=== PATIENT | female | born 1995 | race Caucasian/White ===

== ENCOUNTER 2021-10-27 06:00 | Inpatient (IN) | payer BC ==
[2021-10-27 06:34] LABS: Glucose,Whole Blood 87 mg/dL (70-110)
[2021-10-27] MEDS ORDERED: CARBOPROST TROMETHAMINE 250 MCG/ML 1 ML AMP IM PRN (06:34)
[2021-10-27] MEDS ORDERED: TERBUTALINE 1 MG/ML VIAL SQ PRN (06:34)
[2021-10-27] MEDS ORDERED: LIDOCAINE 0.5% (PF) 5 MG/ML (50 ML SDV) SQ PRN (06:34)
[2021-10-27] MEDS ORDERED: OXYTOCIN 10 UNIT/ML 1 ML VIAL IM PRN (06:34)
[2021-10-27] MEDS ORDERED: METHYLERGONOVINE 0.2 MG/ML 1 ML AMP IM PRN (06:34)
[2021-10-27] MEDS ORDERED: OXYTOCIN 30 UNITS/500 ML NS 30 UNIT in SALINE 1 500ML.BAG IV SCH ×2 (06:45→21:30)
[2021-10-27 06:48] LABS: Basophils # (A) 0.1 k/uL (0-0.2); Basophils % (A) 1 %; Eosinophils # (A) 0.2 k/uL (0-0.7); Eosinophils % (A) 2 %; HCT 39.3 % (34.0-46.0); HGB 13.2 gm/dL (11.4-16.0); Lymphocytes # (A) 2.6 k/uL (1.0-4.8); Lymphocytes % (A) 26 %; MCHC 33.5 g/dL (31.0-37.0); MCV 92.6 fL (80.0-100.0); Mean Platelet Volume 7.5; Monocytes # (A) 0.6 k/uL (0-1.0); Monocytes % (A) 6 %; Neutrophils # (A) 6.5 k/uL (1.3-7.7); Neutrophils % (A) 65 %; Platelet Count 218 k/uL (150-450); RBC 4.25 m/uL (3.80-5.40); RDW 13.6 % (11.5-15.5); WBC 10.1 k/uL (3.8-10.6)
[2021-10-27] MEDS: LACTATED RINGERS 1,000 ML IV SCH ×2 (07:02→12:52)
--- NOTE | 2021-10-27 08:23 | P.HPOB ---
History of Present Illness H&P Date: 10/27/21 Chief Complaint: induction of labor 26 year old presents at 39 weeks for induction of labor. She has diet controlled GDM and sugar today is 87. Her cervix is 2-3 cm dilated, 80% effaced, and -2 station. She is clara irregularly. heart tones are 135 with moderate variability and reactive. Review of Systems All systems: negative Constitutional: Denies chills, Denies fever Eyes: denies blurred vision, denies pain Ears, nose, mouth and throat: Denies headache, Denies sore throat Cardiovascular: Denies chest pain, Denies shortness of breath Respiratory: Denies cough Gastrointestinal: Denies abdominal pain, Denies diarrhea, Denies nausea, Denies vomiting Genitourinary: Denies dysuria, Denies hematuria Musculoskeletal: Denies myalgias Integumentary: Denies pruritus, Denies rash Neurological: Denies numbness, Denies weakness Psychiatric: Denies anxiety, Denies depression Endocrine: Denies fatigue, Denies weight change Past Medical History Past Medical History: No Reported History Additional Past Medical History / Comment(s): ovarian cysts History of Any Multi-Drug Resistant Organisms: None Reported Past Surgical History: No Surgical Hx Reported Past Anesthesia/Blood Transfusion Reactions: No Reported Reaction Past Psychological History: No Psychological Hx Reported Smoking Status: Never smoker Past Alcohol Use History: None Reported Past Drug Use History: None Reported - Past Family History Brother(s) Family Medical History: No Reported History Medications and Allergies Home Medications Medication Instructions Recorded Confirmed Type Vit No.179/Iron/Folic 1 tab PO DAILY 10/27/21 10/27/21 History [ Tablet] Allergies Allergy/AdvReac Type Severity Reaction Status Date / Time codeine AdvReac Unknown Verified 10/26/21 15:18 Sulfa (Sulfonamide AdvReac Unknown Verified 10/26/21 15:18 Antibiotics) Exam Osteopathic Statement: *. No significant issues noted on an osteopathic structural exam other than those noted in the History and Physical/Consult. Vital Signs Temp Pulse Resp BP Pulse Ox 10/27/21 06:29 99.1 F 100 16 139/92 97 Intake and Output 10/26/21 10/27/21 10/27/21 22:59 06:59 14:59 Other: Weight 127.006 kg Heart: Regular rate and rhythm Lungs: Clear to auscultation bilaterally Abdomen: Soft, nontender Extremities: Negative Homans sign Results Result Diagrams: 10/27/21 06:35 Assessment and Plan (1) Gestational diabetes mellitus, class A1 Current Visit: Yes Status: Acute Code(s): O24.410 - GESTATIONAL DIABETES MELLITUS IN , DIET CONTROLLED SNOMED Code(s): 88443320 (2) 39 weeks gestation of Current Visit: Yes Status: Acute Code(s): Z3A.39 - 39 WEEKS GESTATION OF SNOMED Code(s): 23445395 (3) Encounter for induction of labor Current Visit: Yes Status: Acute Code(s): Z34.90 - ENCNTR FOR SUPRVSN OF NORMAL , UNSP, UNSP TRIMESTER SNOMED Code(s): 237815891 Plan: 1. Induction of labor with amniotomy and Pitocin 2. Anticipate normal vaginal delivery
[2021-10-27] MEDS: BUTORPHANOL 1 MG/ML 1 ML VIAL IV PRN ×4 (12:44→17:53)
[2021-10-27] MEDS ORDERED: diphenhydrAMINE 50 MG/ML 1 ML VIAL IVP PRN ×2 (21:25)
[2021-10-27] MEDS ORDERED: HYDROCORTISONE 2.5% RECTAL CREAM 30 GM TUBE RECTAL PRN (21:25)
[2021-10-27] MEDS ORDERED: LANOLIN CREAM 5 GM TUBE TOPICAL PRN (21:25)
[2021-10-27] MEDS ORDERED: SIMETHICONE 80 MG CHEWABLE PO PRN (21:25)
[2021-10-27] MEDS ORDERED: ACETAMINOPHEN TAB 325 MG TAB PO PRN (21:25)
[2021-10-27] MEDS ORDERED: diphenhydrAMINE 25 MG CAP PO PRN (21:25)
[2021-10-27] MEDS ORDERED: ZOLPIDEM 5 MG TAB PO PRN (21:25)
[2021-10-27] MEDS ORDERED: BENZOCAINE/MENTHOL SPRAY 1 GM/SPRAY AEROSOL TOPICAL PRN (21:25)
[2021-10-27] MEDS ORDERED: diphenhydrAMINE 50 MG CAP PO PRN (21:25)
--- NOTE | 2021-10-27 21:28 | P.PROBDLV ---
Vaginal Delivery Note - . Vaginal Delivery Note: 26 year old presents at 39 weeks for induction of labor. She has diet controlled GDM and sugar today is 87. Her cervix is 2-3 cm dilated, 80% effaced, and -2 station. She is clara irregularly. heart tones are 135 with moderate variability and reactive. Pitocin was started and amniotomy performed at 7:47 AM clear fluid noted. She progressed slowly throughout the day. She is nitrous and then Stadol for pain management. Her cervix was a rim dilated and had her start pushing at 2029. Her cervix was completely dilated at 2039. She pushed and delivered a viable female over intact perineum at 2102. Head delivered OA, anterior shoulder delivered gentle downward guidance followed by posterior shoulder and rest of body. Nose and mouth bulb suctioned, cord clamped and cut, placed mother's abdomen. Apgars 9, 9, weight 7 lbs. 9 oz. Placenta delivered spontaneously, intact with three-vessel cord at 2105. Vagina, cervix, and perineum were inspected. Right labial laceration was repaired with 3-0 Vicryl. Estimated blood loss 300 mL. Mother and baby in stable condition.
[2021-10-27] MEDS: IBUPROFEN 600 MG TAB PO PRN (22:56)
[2021-10-28 06:35] LABS: Basophils % (A) 0 %; Eosinophils % (A) 0 %; HGB 11.5 gm/dL (11.4-16.0); Lymphocytes # (A) 2.1 k/uL (1.0-4.8); Lymphocytes % (A) 11 %; MCH 31.2 pg (25.0-35.0); MCHC 33.7 g/dL (31.0-37.0); MCV 92.4 fL (80.0-100.0); Mean Platelet Volume 8.2; Monocytes # (A) 1.4 k/uL (0-1.0); Monocytes % (A) 7 %; Neutrophils # (A) 15.1 k/uL (1.3-7.7); Neutrophils % (A) 80 %; Platelet Count 217 k/uL (150-450); RBC 3.68 m/uL (3.80-5.40); RDW 13.5 % (11.5-15.5); WBC 18.9 k/uL (3.8-10.6)
--- NOTE | 2021-10-28 08:20 | P.DS ---
Providers Date of admission: 10/27/21 06:20 Expected date of discharge: 10/28/21 Attending physician: Norma Mcdaniel Primary care physician: Stated None - Discharge Diagnosis(es) (1) Gestational diabetes mellitus, class A1 Current Visit: Yes Status: Resolved (2) 39 weeks gestation of Current Visit: Yes Status: Resolved (3) Encounter for induction of labor Current Visit: Yes Status: Resolved (4) Normal vaginal delivery Current Visit: Yes Status: Acute Hospital Course: Patient presented for induction of labor. She underwent a normal vaginal delivery. Postterm course was uncomplicated. She denies nausea, vomiting, chest pain, shortness of breath or any calf pain. Patient will be discharged home day #1 in stable condition to follow-up with me in 6 weeks. Plan - Discharge Summary New Discharge Prescriptions: New Ibuprofen [Motrin] 600 mg PO Q6HR PRN #40 tab PRN Reason: Mild Pain (Scale 1 To 3) No Action Vit No.179/Iron/Folic [ Tablet] 1 tab PO DAILY Discharge Medication List Vit No.179/Iron/Folic [ Tablet] 1 tab PO DAILY 10/27/21 [History] Ibuprofen [Motrin] 600 mg PO Q6HR PRN #40 tab 10/28/21 [Rx] Follow up Appointment(s)/Referral(s): Norma Mcdaniel DO [Doctor of Osteopathic Medicine] - 12/06/21 3:45 pm Discharge Disposition: HOME SELF-CARE
[2021-10-28] MEDS: IBUPROFEN 600 MG TAB PO PRN ×2 (08:22→18:39)
[2021-10-28 08:26] VITALS: RESP 16
[2021-10-28] MEDS: SENNOSIDES-DOCUSATE SODIUM 1 EACH TAB PO SCH ×2 (13:02→19:52)
[2021-10-29] MEDS: IBUPROFEN 600 MG TAB PO PRN ×3 (01:41→14:11)
[2021-10-29] MEDS: SENNOSIDES-DOCUSATE SODIUM 1 EACH TAB PO SCH (08:02)
[2021-10-29 08:15] VITALS: BP 112/77; PULSE 99; TEMP 98.4
== END 2021-10-29 16:02 | disposition home or self-care (01) | DRG 807 ==
LOC: MERGE 06:00 → 4FBP 06:20
PROVIDERS: ADMIT Obstetrics & Gynecology; ATTEND Obstetrics & Gynecology
PROC: 10E0XZZ Delivery of Products of Conception, External Approach (ICD-10-PCS; principal; 2021-10-27)
PROC: 10907ZC Drainage of Amniotic Fluid, Therapeutic from Products of Conception, Via Natural or Artificial Opening (ICD-10-PCS; 2021-10-27)
PROC: 3E033VJ Introduction of Other Hormone into Peripheral Vein, Percutaneous Approach (ICD-10-PCS; 2021-10-27)
PROC: 0HQ9XZZ Repair Perineum Skin, External Approach (ICD-10-PCS; 2021-10-27)
DX: O24.420 Gestational diabetes mellitus in childbirth, diet controlled (principal); Z37.0 Single live birth; O70.0 First degree perineal laceration during delivery; Z3A.39 39 weeks gestation of pregnancy; N83.209 Unspecified ovarian cyst, unspecified side; Z88.5 Allergy status to narcotic agent; Z88.2 Allergy status to sulfonamides
CPT/HCPCS: 83036; 85025; 86850; 86900; 86901

== ENCOUNTER → 2023-05-31 | Outpatient (CLI) | payer BC ==
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
== END | disposition home or self-care (01) ==
LOC: RADUSWWP 15:29
PROVIDERS: ATTEND Obstetrics & Gynecology
DX: Z36.89 Encounter for other specified antenatal screening (principal)
CPT/HCPCS: 76801; 76813

== ENCOUNTER 2023-08-25 15:44 | Outpatient (CLI) | payer BC ==
[2023-08-25 17:31] VITALS: BP 127/85; PULSE 100; RESP 18; TEMP 98.8
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
== END 2023-08-25 16:43 | disposition home or self-care (01) ==
LOC: FBPOP 15:44
PROVIDERS: ATTEND Obstetrics & Gynecology
DX: O9A.212 Injury, poisoning and certain other consequences of external causes complicating pregnancy, second trimester (principal); S30.814A Abrasion of vagina and vulva, initial encounter; Z3A.24 24 weeks gestation of pregnancy; Z88.5 Allergy status to narcotic agent; Z88.2 Allergy status to sulfonamides; W01.198A Fall on same level from slipping, tripping and stumbling with subsequent striking against other object, initial encounter; Y92.015 Private garage of single-family (private) house as the place of occurrence of the external cause
CPT/HCPCS: 99213

== ENCOUNTER 2023-12-13 05:50 | Inpatient (IN) | payer BC ==
[2023-12-13] MEDS ORDERED: miSOPROStoL 200 MCG TAB RECTAL PRN (05:56)
[2023-12-13] MEDS ORDERED: METHYLERGONOVINE 0.2 MG/ML 1 ML AMP IM PRN (05:56)
[2023-12-13] MEDS ORDERED: TRANEXAMIC 1,000 MG/100ML-NACL 1,000 MG in EMPTY BAG 1 BAG IV PRN (05:56)
[2023-12-13] MEDS ORDERED: CARBOPROST TROMETHAMINE 250 MCG/ML 1 ML AMP IM PRN (05:56)
[2023-12-13] MEDS ORDERED: OXYTOCIN 10 UNIT/ML 1 ML VIAL IM PRN (05:56)
[2023-12-13] MEDS ORDERED: miSOPROStoL 200 MCG TAB PO PRN (05:56)
[2023-12-13] MEDS ORDERED: TERBUTALINE 1 MG/ML VIAL SQ PRN (05:56)
[2023-12-13] MEDS: LACTATED RINGERS 1,000 ML IV SCH (06:10)
[2023-12-13] MEDS: OXYTOCIN 30 UNITS/500 ML NS 30 UNIT in SALINE 1 500ML.BAG IV SCH ×2 (06:30→19:04)
[2023-12-13 06:31] LABS: Basophils # (A) 0.1 k/uL (0-0.2); Basophils % (A) 1 %; Eosinophils # (A) 0.1 k/uL (0-0.7); Eosinophils % (A) 1 %; HCT 35.3 % (34.0-46.0); HGB 11.8 gm/dL (11.4-16.0); Lymphocytes # (A) 2.5 k/uL (1.0-4.8); Lymphocytes % (A) 24 %; MCH 30.1 pg (25.0-35.0); MCHC 33.4 g/dL (31.0-37.0); MCV 90.1 fL (80.0-100.0); Mean Platelet Volume 7.5; Monocytes # (A) 0.6 k/uL (0-1.0); Monocytes % (A) 5 %; Neutrophils # (A) 6.9 k/uL (1.3-7.7); Neutrophils % (A) 66 %; Platelet Count 253 k/uL (150-450); RBC 3.92 m/uL (3.80-5.40); RDW 14.2 % (11.5-15.5); WBC 10.3 k/uL (3.8-10.6)
--- NOTE | 2023-12-13 07:52 | P.HPOB ---
History of Present Illness H&P Date: 12/13/23 Chief Complaint: induction of labor 28 year old presents at 40 weeks 2 days for induction of labor. Her cervix is 4/80/-3. She is clara every few minutes but not feeling them. heart tones 135 with moderate variability and reactive. Review of Systems All systems: negative Constitutional: Denies chills, Denies fever Eyes: denies blurred vision, denies pain Ears, nose, mouth and throat: Denies headache, Denies sore throat Cardiovascular: Denies chest pain, Denies shortness of breath Respiratory: Denies cough Gastrointestinal: Denies abdominal pain, Denies diarrhea, Denies nausea, Denies vomiting Genitourinary: Denies dysuria, Denies hematuria Musculoskeletal: Denies myalgias Integumentary: Denies pruritus, Denies rash Neurological: Denies numbness, Denies weakness Psychiatric: Denies anxiety, Denies depression Endocrine: Denies fatigue, Denies weight change Past Medical History Past Medical History: No Reported History Additional Past Medical History / Comment(s): ovarian cysts History of Any Multi-Drug Resistant Organisms: None Reported Past Surgical History: No Surgical Hx Reported Past Anesthesia/Blood Transfusion Reactions: No Reported Reaction Past Psychological History: No Psychological Hx Reported Smoking Status: Never smoker Past Alcohol Use History: None Reported Past Drug Use History: None Reported - Past Family History Brother(s) Family Medical History: No Reported History Medications and Allergies Home Medications Medication Instructions Recorded Confirmed Type Vit No.179/Iron/Folic 1 tab PO DAILY 10/27/21 12/13/23 History [ Tablet] Allergies Allergy/AdvReac Type Severity Reaction Status Date / Time codeine AdvReac Unknown Verified 12/13/23 05:56 Sulfa (Sulfonamide AdvReac Unknown Verified 12/13/23 05:56 Antibiotics) Exam Osteopathic Statement: *. No significant issues noted on an osteopathic structural exam other than those noted in the History and Physical/Consult. Vital Signs Temp Pulse Resp BP Pulse Ox 12/13/23 05:56 97.4 F L 96 17 147/89 97 Intake and Output 12/12/23 12/13/23 12/13/23 22:59 06:59 14:59 Other: # Voids 1 Weight 120.202 kg Heart: Regular rate and rhythm Lungs: Clear to auscultation bilaterally Abdomen: Soft, nontender Extremities: Negative Homans sign Results Result Diagrams: 12/13/23 06:10 Assessment and Plan (1) 40 weeks gestation of Current Visit: Yes Status: Acute Code(s): Z3A.40 - 40 WEEKS GESTATION OF SNOMED Code(s): 44519534 (2) Encounter for induction of labor Current Visit: No Status: Resolved Code(s): Z34.90 - ENCNTR FOR SUPRVSN OF NORMAL , UNSP, UNSP TRIMESTER SNOMED Code(s): 487593230 Plan: 1. induction of labor with amniotomy and pitocin. 2. anticipate normal vaginal delivery
[2023-12-13] MEDS: NALBUPHINE 10 MG/ML (10 ML MDV) IV PRN (09:18)
[2023-12-13] MEDS ORDERED: HYDROCORTISONE 2.5% RECTAL CREAM 30 GM TUBE RECTAL PRN (13:26)
[2023-12-13] MEDS ORDERED: ZOLPIDEM 5 MG TAB PO PRN (13:26)
[2023-12-13] MEDS ORDERED: diphenhydrAMINE 25 MG CAP PO PRN (13:26)
[2023-12-13] MEDS ORDERED: diphenhydrAMINE 50 MG CAP PO PRN (13:26)
[2023-12-13] MEDS ORDERED: diphenhydrAMINE 50 MG/ML 1 ML VIAL IVP PRN ×2 (13:26)
[2023-12-13] MEDS ORDERED: LANOLIN CREAM 1 GM TUBE TOPICAL PRN (13:26)
[2023-12-13] MEDS ORDERED: SIMETHICONE 80 MG CHEWABLE PO PRN (13:26)
[2023-12-13] MEDS: IBUPROFEN 600 MG TAB PO PRN (13:40)
[2023-12-13] MEDS: LIDOCAINE 0.5% (PF) 5 MG/ML (50 ML SDV) SQ PRN (13:45)
[2023-12-13] MEDS: BENZOCAINE/MENTHOL SPRAY 1 GM/SPRAY AEROSOL TOPICAL PRN (13:46)
[2023-12-13] MEDS: ACETAMINOPHEN TAB 325 MG TAB PO PRN (15:31)
[2023-12-13 19:48] LABS: Basophils % (A) 0 %; Eosinophils % (A) 0 %; HCT 31.1 % (34.0-46.0); HGB 10.3 gm/dL (11.4-16.0); Hypochromasia Slight; Lymphocytes # (A) 1.1 k/uL (1.0-4.8); Lymphocytes % (A) 6 %; MCH 30.2 pg (25.0-35.0); MCV 91.6 fL (80.0-100.0); Mean Platelet Volume 7.7; Monocytes # (A) 0.7 k/uL (0-1.0); Monocytes % (A) 4 %; Neutrophils % (A) 90 %; Platelet Count 279 k/uL (150-450); RDW 14.3 % (11.5-15.5); WBC 19.9 k/uL (3.8-10.6)
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
[2023-12-13] MEDS: SENNOSIDES-DOCUSATE SODIUM 1 EACH TAB PO SCH (21:25)
[2023-12-14 00:46] LABS: HCT 26.3 % (34.0-46.0); HGB 9.2 gm/dL (11.4-16.0); MCH 31.2 pg (25.0-35.0); MCHC 35.1 g/dL (31.0-37.0); Mean Platelet Volume 7.9; Platelet Count 255 k/uL (150-450); RBC 2.95 m/uL (3.80-5.40); RDW 14.7 % (11.5-15.5); WBC 19.1 k/uL (3.8-10.6)
[2023-12-14 07:13] LABS: Basophils % (A) 0 %; Eosinophils # (A) 0.1 k/uL (0-0.7); Eosinophils % (A) 1 %; HCT 24.4 % (34.0-46.0); HGB 7.9 gm/dL (11.4-16.0); Lymphocytes # (A) 2.4 k/uL (1.0-4.8); Lymphocytes % (A) 16 %; MCH 29.5 pg (25.0-35.0); MCHC 32.3 g/dL (31.0-37.0); MCV 91.3 fL (80.0-100.0); Mean Platelet Volume 8.1; Monocytes % (A) 6 %; Neutrophils # (A) 11.4 k/uL (1.3-7.7); Neutrophils % (A) 75 %; Platelet Count 235 k/uL (150-450); RBC 2.67 m/uL (3.80-5.40); RDW 14.6 % (11.5-15.5); WBC 15.2 k/uL (3.8-10.6)
--- NOTE | 2023-12-14 08:22 | P.PROBDLV ---
Vaginal Delivery Note - . Vaginal Delivery Note: 28 year old presents at 40 weeks 2 days for induction of labor. Her cervix is 4/80/-3. She is clara every few minutes but not feeling them. heart tones 135 with moderate variability and reactive. Pitocin was started and amniotomy performed at 7:30 AM clear fluid noted. Patient quickly progressed to give 1 dose of Nubain when she was 8 cm. Her cervix was completely dilated at 1238. She labored down and then pushed one time and delivered a viable male over intact perineum at 1256. Head delivered OA, anterior shoulder delivered gentle downward guidance for by posterior shoulder and rest of body. Nose and mouth bulb suctioned, cord clamped and cut, placed mother's abdomen. Apgars 9, 9, weight 9 pounds 0.6 ounces. Placenta delivered spontaneously, intact with three-vessel cord at 1304. Vagina, cervix, and perineum were inspected. First-degree midline laceration was repaired with 3-0 Vicryl. Estimated blood loss 150 mL. Mother and baby in stable condition.
--- NOTE | 2023-12-14 08:26 | P.PNOBGVD ---
Subjective - Subjective Principal diagnosis: Status post normal vaginal delivery day #1 Interval history: patient seen and examined. Last night she had a drop in her hemoglobin and pain. After she passed a blood clot her pain resolved but she does have a hematoma on the left side from the abdomen down to the left perivaginal area. When I examined her this morning and felt like a golf ball size very close to the cervix on the left side. she has a catheter in place which will be removed. The patient feels very well is not dizzy or lightheaded, no headache. Vitals are stable. Hemoglobin this morning is 7.9 that to drop down from 11.3 on admission. I'll get another hemoglobin at noon and if this continues to trend down may get a CTA as advised by radiology. : doing well Objective - Latest Vital Signs Latest vital signs: Vital Signs Temp Pulse Resp BP Pulse Ox 12/14/23 04:00 98.2 F 83 16 114/77 97 12/14/23 00:00 98.1 F 89 16 109/73 97 12/13/23 21:00 98.7 F 112 H 17 107/70 97 12/13/23 20:15 107 H 20 105/71 98 12/13/23 19:38 104 H 20 111/77 100 12/13/23 19:22 111 H 20 62/45 97 12/13/23 19:18 112 H 20 67/47 96 12/13/23 18:55 118 H 20 103/68 99 12/13/23 15:15 98 16 143/60 12/13/23 15:00 92 16 137/69 12/13/23 14:45 99 16 132/80 12/13/23 14:30 98.2 F 100 16 129/73 97 12/13/23 14:15 96 16 125/63 12/13/23 14:00 99 16 143/79 12/13/23 13:45 95 16 139/78 12/13/23 13:30 100 16 133/69 12/13/23 13:15 109 H 16 130/74 97 Intake and Output 12/13/23 12/14/23 12/14/23 22:59 06:59 14:59 Intake Total 990.833 Output Total 984 760 Balance -984 230.833 Intake: Intake, IV Titration 990.833 Amount Oxytocin 30 Units/500 ml 990.833 Ns 30 unit In Saline 1 500ml.bag @ Per Protocol IV .Q0M [facility] Rx#:[id number] Output: Urine 200 400 Output, Quantitative 784 360 Blood Loss Other: Voiding Method Indwelling Catheter # Voids 1 - Exam Lungs: bilateral: normal Chest: Normal S1, Normal S2 Extremities: Present: normal Abdomen: Present: normal appearance, soft Uterus: Present: normal, firm - Labs Labs: Abnormal Lab Results - Last 24 Hours (Table) 12/13/23 12/14/23 12/14/23 Range/Units 19:29 00:28 07:04 WBC 19.9 H 19.1 H 15.2 H (3.8-10.6) k/uL RBC 3.40 L 2.95 L 2.67 L (3.80-5.40) m/uL Hgb 10.3 L 9.2 L 7.9 L (11.4-16.0) gm/dL Hct 31.1 L 26.3 L 24.4 L (34.0-46.0) % Neutrophils # 18.0 H 11.4 H (1.3-7.7) k/uL Assessment and Plan (1) 40 weeks gestation of Current Visit: Yes Status: Resolved Code(s): Z3A.40 - 40 WEEKS GESTATION OF SNOMED Code(s): 58210755 (2) Encounter for induction of labor Current Visit: No Status: Resolved Code(s): Z34.90 - ENCNTR FOR SUPRVSN OF NORMAL , UNSP, UNSP TRIMESTER SNOMED Code(s): 864987579 Plan: 1. cont pp care 2. cbc at noon 3. d/c catheter
[2023-12-14 12:23] LABS: HCT 25.2 % (34.0-46.0); HGB 8.5 gm/dL (11.4-16.0); MCH 30.5 pg (25.0-35.0); MCHC 33.6 g/dL (31.0-37.0); MCV 90.8 fL (80.0-100.0); Mean Platelet Volume 7.8; Platelet Count 258 k/uL (150-450); RBC 2.78 m/uL (3.80-5.40); RDW 14.4 % (11.5-15.5); WBC 14.6 k/uL (3.8-10.6)
[2023-12-14 23:45] VITALS: RESP 16
--- NOTE | 2023-12-15 08:02 | P.DS ---
Providers Date of admission: 12/13/23 05:50 Expected date of discharge: 12/15/23 Attending physician: Norma Mcdaniel Primary care physician: Stated None - Discharge Diagnosis(es) (1) 40 weeks gestation of Current Visit: Yes Status: Resolved (2) Encounter for induction of labor Current Visit: No Status: Resolved (3) Vaginal hematoma Current Visit: Yes Status: Acute (4) Normal vaginal delivery Current Visit: No Status: Acute (5) Acute blood loss anemia Current Visit: Yes Status: Acute Hospital Course: Patient presented for induction of labor. She underwent a normal vaginal delivery. course was complicated by a drop in hemoglobin and a vaginal hematoma that extends up into the abdomen near the umbilicus. She did have a CAT scan and serial hemoglobins. The bleeding did stop on its own. Patient denies nausea, vomiting, chest pain, shortness of breath or calf pain. She will be discharged home day #2 in stable condition to follow-up with me in 6 weeks. Plan - Discharge Summary New Discharge Prescriptions: New Ibuprofen [Motrin] 600 mg PO Q6HR PRN #30 tab PRN Reason: Mild Pain (Scale 1 To 3) No Action Vit No.179/Iron/Folic [ Tablet] 1 tab PO DAILY Discharge Medication List Vit No.179/Iron/Folic [ Tablet] 1 tab PO DAILY 10/27/21 [History] Ibuprofen [Motrin] 600 mg PO Q6HR PRN #30 tab 12/15/23 [Rx] Follow up Appointment(s)/Referral(s): Norma Mcdaniel DO [Doctor of Osteopathic Medicine] - 6 Weeks Discharge Disposition: HOME SELF-CARE
[2023-12-15 09:12] VITALS: BP 112/70; PULSE 104; TEMP 98
== END 2023-12-15 13:15 | disposition home or self-care (01) | DRG 806 ==
LOC: 4FBP 05:50
PROVIDERS: ADMIT Obstetrics & Gynecology; ATTEND Obstetrics & Gynecology
PROC: 10E0XZZ Delivery of Products of Conception, External Approach (ICD-10-PCS; principal; 2023-12-14)
PROC: 0HQ9XZZ Repair Perineum Skin, External Approach (ICD-10-PCS; 2023-12-14)
PROC: 10907ZC Drainage of Amniotic Fluid, Therapeutic from Products of Conception, Via Natural or Artificial Opening (ICD-10-PCS; 2023-12-14)
DX: O70.0 First degree perineal laceration during delivery (principal); D62 Acute posthemorrhagic anemia; Z37.0 Single live birth; O99.02 Anemia complicating childbirth; Z3A.40 40 weeks gestation of pregnancy
CPT/HCPCS: 74176; 85025; 85027; 86850; 86900; 86901

== ENCOUNTER → 2024-01-11 | Outpatient (CLI) | payer BC ==
--- NOTE | 2024-01-11 11:23 | US ---
EXAMINATION TYPE: US abdomen complete DATE OF EXAM: 01/11/2024 COMPARISON: NONE CLINICAL INDICATION: Female, 28 years old with history of R93.5 ABN FINDINGS ON DX IMAGING OF ABD REG IONS, I; Follow up to CT scan. TECHNIQUE: Grayscale and color Doppler imaging of the abdomen was performed. 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 Evidence for sonographic Apple's sign: no CBD: wnl Spleen: wnl Right Kidney: No hydronephrosis or masses seen Left Kidney: No hydronephrosis or masses seen Upper IVC: wnl Abd Aorta: wnl IMPRESSION: Mild hepatomegaly. Correlate for underlying hepatocellular disease. [facility], , 01/11/2024 11:21 AM
--- NOTE | 2024-01-11 11:51 | US ---
EXAMINATION TYPE: US pelvic complete DATE OF EXAM: 01/11/2024 COMPARISON: NONE CLINICAL INDICATION: Female, 28 years old with history of R93.5 ABN FINDINGS ON DX IMAGING OF ABD REG IONS, I; Follow up to ct scan large hematoma seen TECHNIQUE: Transabdominal (TA FINDINGS: EXAM MEASUREMENTS: Uterus: 12.3 x 5.0 x 5.9 cm Endometrial Stripe: .4 cm Right Ovary: 2.7 x 1.7 x 2.0 cm Complex area seen left adnexa measuring 13.6 x 7.9 x 7.4 cm 1. Uterus: Anteverted wnl 2. Endometrium: wnl 3. Right Ovary: wnl 4. Left Ovary: Obscured by complex area in left adnexa. 5. Bilateral Adnexa: Complex mass seen 6. Posterior cul-de-sac: wnl Report called to the referring clinician Dr. Beyer 11:38 AM 01/11/2024. IMPRESSION: Large complex area in the left adnexa measuring 13.6 x 7.9 cm. Most likely is related to a large hematoma previously described by CT scan. Other etiologies including neoplasm and infection n ot excluded. Recommend follow-up to resolution. CT scan of the abdomen and pelvis could be obtained f or further evaluation. [facility], , 01/11/2024 11:49 AM
== END | disposition home or self-care (01) ==
LOC: RADUSWWP 09:03
PROVIDERS: ATTEND Pediatrics
DX: R93.5 Abnormal findings on diagnostic imaging of other abdominal regions, including retroperitoneum (principal)
CPT/HCPCS: 76700; 76856

== ENCOUNTER → 2024-01-22 | Outpatient (CLI) | payer BC | END | disposition home or self-care (01) | LOC: RADFLMAIN 08:22 | PROVIDERS: ATTEND Urology | DX: R32 Unspecified urinary incontinence (principal) ==

== ENCOUNTER → 2024-06-12 | Outpatient (CLI) | payer BC ==
--- NOTE | 2024-06-12 13:40 | CT ---
EXAMINATION TYPE: CT abdomen pelvis w con DATE OF EXAM: 06/12/2024 COMPARISON: Prior CT December 13, 2023 CLINICAL INDICATION: Female, 29 years old with history of N94.89 OTH COND ASSOC W FEMALE GENITAL ORGA NS AND, Pelvic hematoma after x 6 months ago., TECHNIQUE: CT scan of the abdomen and pelvis is performed with IV Contrast, patient injected with 100ml mL of Is ovue 300., (none if empty) Oral contrast used: with Oral Contrast (none if empty) CT DLP: 1781 mGycm, Automated exposure control for dose reduction was used. FINDINGS: LUNG BASES: No significant abnormality is appreciated. LIVER/GB: No significant abnormality is appreciated. PANCREAS: No significant abnormality is seen. SPLEEN: No significant abnormality is seen. ADRENALS: No significant abnormality is seen. KIDNEYS: No significant abnormality is seen. BOWEL: No significant abnormality is seen. UTERUS/ADNEXA: Anteverted uterus now better visualized. Ovaries are normal in size. No free fluid. Al most completely Resolved heterogeneous large fluid collection in the abdomen and pelvis. There is rem nant 4.4 x 3.2 cm thin-walled fluid collection in the anterior inferior left pelvis image 93 with loc al mass effect on the left aspect of the bladder. LYMPH NODES: No greater than 1cm abdominal or pelvic lymph nodes are appreciated. OSSEOUS STRUCTURES: No significant abnormality is seen. OTHER: Stable tiny fat-containing umbilical hernia. IMPRESSION: There is only small remnant 4.4 x 3.2 cm thin-walled fluid collection in the anterior inf erior left pelvis just above the pubic symphysis. Majority of large hematoma has resolved in the inte rval. [facility], , 06/12/2024 1:37 PM
== END | disposition home or self-care (01) ==
LOC: RADCTMAIN 10:06
PROVIDERS: ATTEND Student in an Organized Health Care Education/Training Program
DX: N94.89 Other specified conditions associated with female genital organs and menstrual cycle (principal); Z86.79 Personal history of other diseases of the circulatory system
CPT/HCPCS: 74177; Q9967